=== PATIENT | female | born 1980 | race African-American/Black ===

== ENCOUNTER 2016-05-06 20:55 | Emergency (ER) | payer OTHER ==
[~2016-05-06] VITALS: Ht 167.6 cm; Wt 102.1 kg
[2016-05-06 22:18] LABS: HEMATOCRIT 31.8 % (36.0-46.0); MCH 25.2 PG (29.0-34.0); MCHC 33.3 G/DL (30.0-36.0); MCV 75.7 FL (83-99); MEAN PLAT.VOLUME 9.9 uM^3 (9.5-12.4); PLATELET COUNT 313 K/uL (156-360); RBC DIS.WIDTH-CV 18.3 % (11.8-14.6); RBC DIS.WIDTH-SD 47.7 % (39-53); WHITE BLOOD COUNT 7.4 K/uL (4.1-10.2)
[2016-05-06 22:27] LABS: CHLORIDE 104 mEq/L (99-109); POTASSIUM 3.6 mEq/L (3.7-5.4); SODIUM 135 mEq/L (136-147)
[2016-05-06 22:30] LABS: GLUCOSE 85 mg/dL (70-99)
[2016-05-06 22:31] LABS: ANION GAP 10 MEQ/L (2-14)
[2016-05-06 22:32] LABS: TOTAL BILIRUBIN 0.2 mg/dL (0.0-1.0)
[2016-05-06 22:33] LABS: ALKALINE PHOSPHATASE 56 IU/L (3-129)
[2016-05-06 22:34] LABS: UREA NITROGEN (BUN) 12 mg/dL (9-23)
[2016-05-06 22:36] LABS: GFR ESTIMATE (CALCULATED) > 59 mL/min/
[2016-05-06 22:59] LABS: QUANTITATIVE HCG 39193.3 MIU/ML
[2016-05-06 23:21] LABS: ADD MIUA? YES; BILIRUBIN NEGATIVE; BLOOD NEGATIVE; COLOR YELLOW ((YELLOW)); GLUCOSE (STRIP) NEGATIVE; KETONES 15; LEUKOCYTES NEGATIVE; NITRITE NEGATIVE; PROTEIN (STRIP) TRACE; SPECIFIC GRAVITY 1.028 (1.000-1.030)
[2016-05-06 23:35] LABS: BACTERIA 2+; CASTS NONE SEEN /LPF; EPITHELIAL CELLS 1+; MUCUS 1+; RED BLOOD CELLS NONE SEEN /HPF (0-5); UCUL ADDED? NO; WHITE BLOOD CELLS NONE SEEN /HPF (0-5)
[2016-05-06 23:36] LABS: AMORPHOUS URATES CRYSTALS 3+; CRYSTALS PRESENT
[2016-05-07] MEDS ORDERED: COLACE100 MG PO (00:40)
[2016-05-07 01:15] VITALS: BP 136/77
== END 2016-05-07 01:21 | disposition home or self-care (01) ==
LOC: EME 20:55 → RME 20:55
DX: K59.00 Constipation, unspecified (principal); O26.91 Pregnancy related conditions, unspecified, first trimester; R10.9 Unspecified abdominal pain; Z87.891 Personal history of nicotine dependence; Z3A.01 Less than 8 weeks gestation of pregnancy
CPT/HCPCS: 76801; 80053; 81003; 84702; 85027; 99281; 99284

== ENCOUNTER 2016-07-09 11:44 | Emergency (ER) | payer SELFPAY ==
[~2016-07-09] VITALS: Ht 167.6 cm; Wt 105.4 kg
[~2016-07-09 11:44] MED LIST: COLACE100 MG PO
[2016-07-09] MEDS ORDERED: PROTONIX40 MG PO (12:27)
[2016-07-09 12:48] LABS: BILIRUBIN NEGATIVE; BLOOD NEGATIVE; COLOR YELLOW ((YELLOW)); GLUCOSE (STRIP) NEGATIVE; KETONES 5; LEUKOCYTES NEGATIVE; NITRITE NEGATIVE; PROTEIN (STRIP) NEGATIVE; SPECIFIC GRAVITY 1.021 (1.000-1.030); UROBILINOGEN 0.2 MG/DL (0.2-1.0)
[2016-07-09 12:49] LABS: ADD MIUA? NO
[2016-07-09 12:51] LABS: HEMATOCRIT 33.4 % (36.0-46.0); MCH 25.5 PG (29.0-34.0); MCHC 31.7 G/DL (30.0-36.0); MCV 80.3 FL (83-99); MEAN PLAT.VOLUME 9.8 uM^3 (9.5-12.4); PLATELET COUNT 365 K/uL (156-360); RBC DIS.WIDTH-CV 18.3 % (11.8-14.6); RBC DIS.WIDTH-SD 53.3 % (39-53); RED BLOOD COUNT 4.16 M/uL (3.80-5.20)
[2016-07-09 12:59] LABS: CHLORIDE 102 mEq/L (99-109); POTASSIUM 3.8 mEq/L (3.7-5.4); SODIUM 136 mEq/L (136-147)
[2016-07-09 13:02] LABS: GLUCOSE 86 mg/dL (70-99)
[2016-07-09 13:03] LABS: ANION GAP 10 MEQ/L (2-14); TOTAL BILIRUBIN 0.2 mg/dL (0.0-1.0)
[2016-07-09 13:05] LABS: ALKALINE PHOSPHATASE 61 IU/L (3-129); GFR ESTIMATE (CALCULATED) > 59 mL/min/
[2016-07-09 13:06] LABS: UREA NITROGEN (BUN) 8 mg/dL (9-23)
[2016-07-09 13:09] LABS: LIPASE 42 U/L (1.0-51.0)
[2016-07-09 13:36] LABS: QUANTITATIVE HCG 21715.6 MIU/ML
[2016-07-09 14:30] VITALS: BP 135/80
== END 2016-07-09 14:30 | disposition home or self-care (01) ==
LOC: EME 11:44 → RME 11:44
PROVIDERS: Physician Assistant
DX: O20.0 Threatened abortion (principal); R10.13 Epigastric pain; R10.32 Left lower quadrant pain; Z3A.15 15 weeks gestation of pregnancy
CPT/HCPCS: 76805; 76815; 80053; 81003; 83690; 84702; 85027; 99281; 99283

== ENCOUNTER 2016-08-16 09:08 | Outpatient (CLI) | payer OTHER ==
[~2016-08-16 09:08] MED LIST changes: +PROTONIX40 MG PO
[2016-08-16 09:45] VITALS: BP 149/65
[2016-08-16 10:26] LABS: EOSINOPHIL (%) 1.3 % (0-5); EOSINOPHIL COUNT 0.1 K/uL (0-0.3); HEMATOCRIT 30.4 % (36.0-46.0); IMMATURE GRANULOCYTE (%) 0.6 % (0.0-0.7); IMMATURE GRANULOCYTE COUNT 0.1 K/uL; LYMPHOCYTE COUNT 1.5 K/uL (1.0-2.8); MCH 26.2 PG (29.0-34.0); MCHC 31.9 G/DL (30.0-36.0); MCV 82.2 FL (83-99); MEAN PLAT.VOLUME 10.1 uM^3 (9.5-12.4); MONOCYTE (%) 8.4 % (3-12); MONOCYTE COUNT 0.8 K/uL (0-0.8); NEUTROPHIL (%) 73.4 % (45-76); PLATELET COUNT 293 K/uL (156-360); RBC DIS.WIDTH-CV 16.8 % (11.8-14.6); WHITE BLOOD COUNT 9.5 K/uL (4.1-10.2)
[2016-08-16 10:50] LABS: ALKALINE PHOSPHATASE 57 IU/L (3-129); ANION GAP 8 MEQ/L (2-14); CHLORIDE 104 MEQ/L (99-109); GFR ESTIMATE (CALCULATED) > 59 mL/min/; GLUCOSE 80 mg/dL (70-99); POTASSIUM 3.7 MEQ/L (3.7-5.4); SAMPLE HEMOLYSIS CHECK 0; SAMPLE ICTERIC CHECK 0; SAMPLE LIPEMIA CHECK 0; SODIUM 134 MEQ/L (136-147); TOTAL BILIRUBIN 0.3 MG/DL (0.0-1.0); UREA NITROGEN (BUN) 4 mg/dL (9-23)
[2016-08-16 11:50] LABS: ADD MIUA? YES; BILIRUBIN NEGATIVE; BLOOD NEGATIVE; COLOR YELLOW ((YELLOW)); GLUCOSE (STRIP) NEGATIVE; KETONES 80; LEUKOCYTES NEGATIVE; NITRITE NEGATIVE; PROTEIN (STRIP) NEGATIVE; SPECIFIC GRAVITY 1.014 (1.000-1.030); UROBILINOGEN 0.2 MG/DL (0.2-1.0)
[2016-08-16 11:53] LABS: BACTERIA NONE SEEN /HPF; EPITHELIAL CELLS 2+ /HPF; MUCUS TRACE /LPF; RED BLOOD CELLS 0-5 /HPF (0-5); UCUL ADDED? NO; WHITE BLOOD CELLS 0-5 /HPF (0-5)
[2016-08-16 14:39] LABS: AMPHETAMINES QUANT VALUE 0 NG/ML; BARBITUATES QUANT VALUE 0 NG/ML; BENZODIAZEPINES QUANT VALUE 0 NG/ML; BENZODIAZEPINES, URINE SCREEN Negative (200 ng/mL); OPIATES QUANTITATIVE VALUE 0 NG/ML; PHENCYCLIDINE QUANT VALUE 0 NG/ML
[2016-08-17 12:20] LABS: CHLAMYDIA TRACHOMATIS NEGATIVE; NEISSERIA GONORRHOEAE NEGATIVE
== END 2016-08-16 14:51 | disposition home or self-care (01) ==
LOC: LDRP-OP 09:08 → 2WEST 09:09
PROVIDERS: Advanced Practice Midwife
DX: O47.02 False labor before 37 completed weeks of gestation, second trimester (principal); O09.522 Supervision of elderly multigravida, second trimester; Z3A.21 21 weeks gestation of pregnancy; O99.282 Endocrine, nutritional and metabolic diseases complicating pregnancy, second trimester; E86.0 Dehydration; O99.322 Drug use complicating pregnancy, second trimester; F12.10 Cannabis abuse, uncomplicated; O09.32 Supervision of pregnancy with insufficient antenatal care, second trimester; Z73.3 Stress, not elsewhere classified
CPT/HCPCS: 59025; 80053; 80306 90; 81003; 85025; 87081; 87491; 87591; G0378; J7120

== ENCOUNTER 2016-08-21 03:42 | Outpatient (CLI) | payer OTHER ==
[~2016-08-21] VITALS: Ht 167.6 cm; Wt 101.7 kg
[2016-08-21 04:28] VITALS: BP 122/56
[2016-08-21 05:24] LABS: ADD MIUA? NO; BILIRUBIN NEGATIVE; BLOOD NEGATIVE; COLOR STRAW ((YELLOW)); GLUCOSE (STRIP) NEGATIVE; KETONES 5; LEUKOCYTES NEGATIVE; NITRITE NEGATIVE; PROTEIN (STRIP) NEGATIVE; SPECIFIC GRAVITY 1.003 (1.000-1.030); UCUL ADDED? NO; UROBILINOGEN 0.2 MG/DL (0.2-1.0)
== END 2016-08-21 08:10 | disposition home or self-care (01) ==
LOC: EME 03:42 → EDSTATUS 04:17 → LDRP-OP 04:19 → 2WEST 04:20
PROVIDERS: Advanced Practice Midwife
DX: O26.892 Other specified pregnancy related conditions, second trimester (principal); K59.00 Constipation, unspecified; R10.9 Unspecified abdominal pain; O09.522 Supervision of elderly multigravida, second trimester; Z3A.22 22 weeks gestation of pregnancy
CPT/HCPCS: 59025; 81003; G0378; J7120

== ENCOUNTER → 2016-09-25 | Outpatient (CLI) | payer OTHER ==
[~2016-09-25] VITALS: Ht 167.6 cm; Wt 104.0 kg
[~2016-09-25] MED LIST changes: +MULTI-VITAMIN1 EAC3 PO
[2016-09-25 10:54] VITALS: BP 116/64
== END | disposition home or self-care (01) ==
LOC: IVINF 10:30
DX: Z31.82 Encounter for Rh incompatibility status (principal); Z3A.23 23 weeks gestation of pregnancy
CPT/HCPCS: 96372; J2790

== ENCOUNTER 2016-11-30 18:20 | Outpatient (CLI) | payer OTHER ==
[~2016-11-30] VITALS: Ht 167.6 cm; Wt 107.5 kg
[2016-11-30] MEDS ORDERED: ASPIR 8181 M1 PO (19:19)
[2016-11-30] MEDS ORDERED: ZYRTEC5 MG PO (19:19)
[2016-11-30 21:10] LABS: ADD MIUA? YES; BILIRUBIN NEGATIVE; BLOOD NEGATIVE; COLOR YELLOW ((YELLOW)); GLUCOSE (STRIP) NEGATIVE; KETONES NEGATIVE; LEUKOCYTES MODERATE; NITRITE NEGATIVE; PROTEIN (STRIP) NEGATIVE; SPECIFIC GRAVITY 1.011 (1.000-1.030); UROBILINOGEN 0.2 MG/DL (0.2-1.0)
[2016-11-30 21:18] LABS: BACTERIA RARE /HPF; EPITHELIAL CELLS RARE /HPF; MUCUS TRACE /LPF; RED BLOOD CELLS 0-5 /HPF (0-5); UCUL ADDED? YES
[2016-11-30 22:05] LABS: CANDIDA DNA PROBE NEGATIVE; GARDNERELLA DNA PROBE POSITIVE; INTERNAL CONTROL VALID? YES
[2016-12-02 13:36] LABS: CHLAMYDIA TRACHOMATIS NEGATIVE; NEISSERIA GONORRHOEAE NEGATIVE
== END 2016-11-30 20:26 | disposition home or self-care (01) ==
LOC: LDRP-OP 18:20 → 2WEST 18:21 → LDRP-OP 01-23 15:02
PROVIDERS: Advanced Practice Midwife; Obstetrics & Gynecology
DX: O26.893 Other specified pregnancy related conditions, third trimester (principal); R10.9 Unspecified abdominal pain; M54.9 Dorsalgia, unspecified; O32.1XX0 Maternal care for breech presentation, not applicable or unspecified; Z3A.36 36 weeks gestation of pregnancy
CPT/HCPCS: 59025; 81003; 87086; 87480; 87491; 87510; 87591; 87660; G0378

== ENCOUNTER 2016-12-02 16:52 | Outpatient (CLI) | payer OTHER ==
[~2016-12-02 16:52] MED LIST changes: +ASPIR 8181 M1 PO; +ZYRTEC5 MG PO
[2016-12-02 17:15] VITALS: BP 141/79
[2016-12-02 17:47] LABS: HEMATOCRIT 30.3 % (36.0-46.0); MCH 26.6 PG (29.0-34.0); PLATELET COUNT 221 K/uL (156-360); RBC DIS.WIDTH-CV 21.1 % (11.8-14.6); RBC DIS.WIDTH-SD 62.1 % (39-53); RED BLOOD COUNT 3.65 M/uL (3.80-5.20); WHITE BLOOD COUNT 7.9 K/uL (4.1-10.2)
[2016-12-02 18:16] LABS: IRON 50 MCG/DL (35-150)
[2016-12-02 18:18] VITALS: BP 146/67
[2016-12-02 18:25] LABS: FERRITIN 19 NG/ML (10-291)
[2016-12-02 18:28] LABS: EOSINOPHIL (%) 1.4 % (0-5); EOSINOPHIL COUNT 0.1 K/uL (0-0.3); IMMATURE GRANULOCYTE (%) 1.3 % (0.0-0.7); IMMATURE GRANULOCYTE COUNT 0.1 K/uL; INSTRUMENT ABS NEUTROPHIL CT 5.7 K/uL; LYMPHOCYTE COUNT 1.4 K/uL (1.0-2.8); MONOCYTE (%) 7.5 % (3-12); MONOCYTE COUNT 0.6 K/uL (0-0.8); NEUTROPHIL (%) 72.2 % (45-76); NEUTROPHIL COUNT 5.7 K/uL (1.8-6.4)
[2016-12-02] MEDS ORDERED: FERROUS SU15 MG/1 ML PO (19:15)
[2016-12-02] MEDS ORDERED: ZANTAC150 MG PO (19:15)
[2016-12-02] MEDS ORDERED: FLAGYL500 MG PO (19:16)
== END 2016-12-02 21:04 | disposition home or self-care (01) ==
LOC: LDRP-OP 16:52 → 2WEST 16:54 → LDRP-OP 01-23 21:41
PROVIDERS: Obstetrics & Gynecology
PROC: 10S0XZZ Reposition Products of Conception, External Approach (ICD-10-PCS; principal; 2016-12-02)
DX: O32.1XX0 Maternal care for breech presentation, not applicable or unspecified (principal); Z3A.37 37 weeks gestation of pregnancy; O09.523 Supervision of elderly multigravida, third trimester; O99.013 Anemia complicating pregnancy, third trimester; O99.213 Obesity complicating pregnancy, third trimester; E66.9 Obesity, unspecified
CPT/HCPCS: 59025; 82728; 83540; 84466; 85025; 86900; 86901; G0378; J2790; J3105

== ENCOUNTER 2016-12-21 07:35 | Inpatient (IN) | payer OTHER ==
[~2016-12-21] VITALS: Ht 167.6 cm; Wt 107.0 kg
[2016-12-21] VITALS (7 sets, daily range): BP systolic 106–143; BP diastolic 54–83
[~2016-12-21 07:35] MED LIST changes: +CLINDAMYCIN HC300 MG PO; +FERROUS SU15 MG/1 ML PO; +FLAGYL500 MG PO; +IRON325 M1 PO; +ZANTAC150 MG PO
[2016-12-21 09:28] LABS: HEMATOCRIT 33.1 % (36.0-46.0); MCH 28.2 PG (29.0-34.0); MCHC 32.6 G/DL (30.0-36.0); MCV 86.4 FL (83-99); RBC DIS.WIDTH-CV 22.1 % (11.8-14.6); RBC DIS.WIDTH-SD 69.3 % (39-53); RED BLOOD COUNT 3.83 M/uL (3.80-5.20)
[2016-12-21 09:55] LABS: PLAT.SUFFICIENCY ADEQUATE; PLATELET COUNT 211 K/uL (156-360)
[2016-12-21 10:33] LABS: AMPHETAMINES QUANT VALUE 0 NG/ML; BARBITUATES QUANT VALUE 0 NG/ML; BENZODIAZEPINES QUANT VALUE 0 NG/ML; BENZODIAZEPINES, URINE SCREEN Negative (200 ng/mL); MARIJUANA QUANT VALUE 0 NG/ML; OPIATES QUANTITATIVE VALUE 0 NG/ML; PHENCYCLIDINE QUANT VALUE 0 NG/ML
[2016-12-22 03:10] VITALS: BP 124/56
[2016-12-22 05:56] LABS: EOSINOPHIL (%) 1.2 % (0-5); EOSINOPHIL COUNT 0.1 K/uL (0-0.3); HEMATOCRIT 29.1 % (36.0-46.0); IMMATURE GRANULOCYTE (%) 0.7 % (0.0-0.7); IMMATURE GRANULOCYTE COUNT 0.1 K/uL; INSTRUMENT ABS NEUTROPHIL CT 8.5 K/uL; LYMPHOCYTE COUNT 1.2 K/uL (1.0-2.8); MCH 28.9 PG (29.0-34.0); MCHC 33.7 G/DL (30.0-36.0); MCV 85.8 FL (83-99); MEAN PLAT.VOLUME 11.3 uM^3 (9.5-12.4); MONOCYTE (%) 9.5 % (3-12); NEUTROPHIL (%) 77.6 % (45-76); NEUTROPHIL COUNT 8.5 K/uL (1.8-6.4); NRBC (%) 0.2 /100 WBC (0-0); PLATELET COUNT 208 K/uL (156-360); RBC DIS.WIDTH-CV 21.8 % (11.8-14.6); RBC DIS.WIDTH-SD 67.6 % (39-53); RED BLOOD COUNT 3.39 M/uL (3.80-5.20)
[2016-12-22 07:20] VITALS: BP 122/65
[2016-12-22 12:15] VITALS: BP 112/57
[2016-12-22 15:01] VITALS: BP 140/70
[2016-12-23 10:55] VITALS: BP 136/67
[2016-12-23] MEDS ORDERED: ASCORBIC ACID500 M3 PO (12:03)
[2016-12-23] MEDS ORDERED: IBUPROFEN800 MG PO (12:03)
[2016-12-23] MEDS ORDERED: IRON325 M1 PO (12:03)
[2016-12-23] MEDS ORDERED: DOCUSATE SODIU100 MG PO (12:03)
[2016-12-23] MEDS ORDERED: ENDOCET 5-3251 EACH PO (12:03)
== END 2016-12-23 14:30 | disposition home or self-care (01) | DRG 765 ==
LOC: 2SOUTH → 2WEST 07:35 → 2SOUTH 09:08 → 2WEST 12-23 14:30
PROVIDERS: Advanced Practice Midwife; Obstetrics & Gynecology
DX: O32.8XX0 Maternal care for other malpresentation of fetus, not applicable or unspecified (principal); O99.214 Obesity complicating childbirth; E66.9 Obesity, unspecified; D50.9 Iron deficiency anemia, unspecified; O99.02 Anemia complicating childbirth; D25.9 Leiomyoma of uterus, unspecified; O34.13 Maternal care for benign tumor of corpus uteri, third trimester; O99.323 Drug use complicating pregnancy, third trimester; F12.90 Cannabis use, unspecified, uncomplicated; O36.0191 Maternal care for anti-D [Rh] antibodies, unspecified trimester, fetus 1; N76.0 Acute vaginitis; O99.619 Diseases of the digestive system complicating pregnancy, unspecified trimester; E78.00 Pure hypercholesterolemia, unspecified; K21.9 Gastro-esophageal reflux disease without esophagitis; O99.52 Diseases of the respiratory system complicating childbirth; J45.909 Unspecified asthma, uncomplicated; K59.00 Constipation, unspecified; Z37.0 Single live birth; Z30.2 Encounter for sterilization; Z68.30 Body mass index [BMI] 30.0-30.9, adult; Z3A.39 39 weeks gestation of pregnancy; O09.523 Supervision of elderly multigravida, third trimester; O09.90 Supervision of high risk pregnancy, unspecified, unspecified trimester
CPT/HCPCS: 80306 90; 83030; 85025; 85027; 86850; 86870; 86900; 86901; 86905; 86920; J0690; J2274; J2405; J2590; J2765; J2790; J3010; J7120